=== PATIENT | female | born 1940 | race Caucasian/White ===

== ENCOUNTER 2023-07-26 14:47 | Emergency (ER) | payer MEDICARE, OTHER ==
[2023-07-26 15:17] LABS: BASOPHILS ABSOLUTE AUTO 0.03 K/uL (0.00-0.20); BASOPHILS PERCENT AUTO 0.5 % (0.0-1.0); EOSINOPHILS ABSOLUTE AUTO 0.09 K/uL (0.00-0.45); EOSINOPHILS PERCENT AUTO 1.6 % (0.0-6.0); HEMATOCRIT 33.6 % (37.0-47.0); HEMOGLOBIN 10.2 g/dL (12.0-16.0); IMMATURE GRAN ABSOLUTE AUTO 0.01 K/uL (0.00-0.05); IMMATURE GRAN PERCENT AUTO 0.2 % (0.0-0.4); LYMPHOCYTES ABSOLUTE AUTO 1.63 K/uL (1.00-4.80); LYMPHOCYTES PERCENT AUTO 29.2 % (24.0-44.0); MEAN CORPUSCULAR HEMOGLOBIN 26.1 pg (28.0-32.0); MEAN CORPUSCULAR HGB CONC 30.4 g/dL (32.0-36.0); MEAN CORPUSCULAR VOLUME 85.9 fL (83.0-99.0); MEAN PLATELET VOLUME 9.6 fL (9.4-12.3); MONOCYTES ABSOLUTE AUTO 0.48 K/uL (0.00-0.80); MONOCYTES PERCENT AUTO 8.6 % (0.0-8.0); NEUTROPHILS ABSOLUTE AUTO 3.34 K/uL (1.80-7.70); NEUTROPHILS PERCENT AUTO 59.9 % (41.0-71.0); PLATELET COUNT,PLT 200 K/uL (150-400); RED BLOOD CELL COUNT 3.91 M/uL (4.10-5.30); WHITE BLOOD CELL COUNT,WBC 5.58 K/uL (3.9-11.3)
[2023-07-26 15:53] LABS: CALCIUM 8.7 mg/dL (8.5-10.1); CARBON DIOXIDE,CO2 31.6 mmol/L (21.0-32.0); CREATININE 1.1 mg/dL (0.6-1.0); EST CRCL DRUG DOSING (CG) 36.91 mL/min; POTASSIUM,K 4.4 mmol/L (3.5-5.1)
[2023-07-26 16:03] LABS: APPEARANCE,URINE CLEAR; BILIRUBIN,URINE NEGATIVE (NEGATIVE); COLOR,URINE YELLOW; GLUCOSE,URINE NEGATIVE (NEGATIVE); KETONES,URINE NEGATIVE (NEGATIVE); LEUKOCYTE ESTERASE,URINE SMALL (NEGATIVE); NITRITE,URINE NEGATIVE (NEGATIVE); OCCULT BLOOD,URINE SMALL (NEGATIVE); PROTEIN,URINE NEGATIVE (NEGATIVE); UROBILINOGEN,URINE 0.2 EU/dL (<2.0)
[2023-07-26 16:21] LABS: EPITHELIAL CELLS,URINE MANY (NONE-FEW)
[2023-07-26 16:22] LABS: BACTERIA,URINE RARE (NEGATIVE)
[2023-07-27 09:08] VITALS: BP 100/51; PULSE 68
== END 2023-07-26 17:20 | disposition home or self-care (01) ==
LOC: MW.ED 14:47
DX: S00.93XA Contusion of unspecified part of head, initial encounter (principal); E78.00 Pure hypercholesterolemia, unspecified; K21.9 Gastro-esophageal reflux disease without esophagitis; M19.90 Unspecified osteoarthritis, unspecified site; Z79.82 Long term (current) use of aspirin; Z79.899 Other long term (current) drug therapy; W18.30XA Fall on same level, unspecified, initial encounter; Z75.8 Other problems related to medical facilities and other health care
CPT/HCPCS: 36415; 70450; 70450-26; 80048; 81001; 85025; 99282; 99284

== ENCOUNTER 2023-08-08 10:21 | Emergency (ER) | payer MEDICARE, OTHER ==
[2023-08-08] MEDS: Sodium Chloride 0.9% 10 ML Syringe FLUSH PRN (10:43)
[2023-08-08] MEDS: Sodium Chloride 0.9% 2.5 ML Syringe FLUSH PRN (10:44)
[2023-08-08 11:41] LABS: BASOPHILS ABSOLUTE AUTO 0.02 K/uL (0.00-0.20); BASOPHILS PERCENT AUTO 0.3 % (0.0-1.0); EOSINOPHILS ABSOLUTE AUTO 0.01 K/uL (0.00-0.45); EOSINOPHILS PERCENT AUTO 0.1 % (0.0-6.0); HEMATOCRIT 33.2 % (37.0-47.0); HEMOGLOBIN 9.8 g/dL (12.0-16.0); IMMATURE GRAN ABSOLUTE AUTO 0.02 K/uL (0.00-0.05); IMMATURE GRAN PERCENT AUTO 0.3 % (0.0-0.4); LYMPHOCYTES ABSOLUTE AUTO 0.75 K/uL (1.00-4.80); LYMPHOCYTES PERCENT AUTO 9.8 % (24.0-44.0); MEAN CORPUSCULAR HEMOGLOBIN 25.7 pg (28.0-32.0); MEAN CORPUSCULAR HGB CONC 29.5 g/dL (32.0-36.0); MEAN CORPUSCULAR VOLUME 87.1 fL (83.0-99.0); MEAN PLATELET VOLUME 9.9 fL (9.4-12.3); MONOCYTES ABSOLUTE AUTO 0.53 K/uL (0.00-0.80); MONOCYTES PERCENT AUTO 6.9 % (0.0-8.0); NEUTROPHILS ABSOLUTE AUTO 6.35 K/uL (1.80-7.70); NEUTROPHILS PERCENT AUTO 82.6 % (41.0-71.0); PLATELET COUNT,PLT 171 K/uL (150-400); RED BLOOD CELL COUNT 3.81 M/uL (4.10-5.30); WHITE BLOOD CELL COUNT,WBC 7.68 K/uL (3.9-11.3)
[2023-08-08 11:50] LABS: INR 1.06 (0.86-1.11)
[2023-08-08] MEDS: Iopamidol 755 MG/ML 500 ML Multipack Bottle IVPUSH STA (12:00)
[2023-08-08 12:10] LABS: A/G RATIO 0.6 (0.9-1.6); ALANINE AMINOTRANSFERASE,ALT 10 IU/L (14-63); ALBUMIN 2.3 g/dL (3.4-5.0); ALKALINE PHOSPHATASE 87 U/L (46-116); ASPARTATE AMNIOTRANSFERASE,AST 15 IU/L (15-37); BILIRUBIN TOTAL 0.6 mg/dL (0.2-1.0); BLOOD UREA NITROGEN,BUN 23 mg/dL (7.0-18.0); CALCIUM 8.6 mg/dL (8.5-10.1); CHLORIDE,CL 101 mmol/L (98-107); GLUCOSE RANDOM 100 mg/dL (74-106); LACTIC ACID 0.9 mmol/L (0.4-2.0); MAGNESIUM 2.2 mg/dL (1.8-2.4); POTASSIUM,K 3.8 mmol/L (3.5-5.1); PROTEIN TOTAL,TP 6.2 g/dL (6.4-8.2); SODIUM,NA 136 mmol/L (136-145)
[2023-08-08 12:12] LABS: ESTIMATED GFR 56 mL/min (>60)
[2023-08-08] MEDS: Factor IX Complex Human 1,000 UNIT VIAL IV ONE ×2 (12:40→12:41)
[2023-08-08] MEDS: cefTRIAXone 1 GM in Sodium Chloride 0.9% 50 ML IV ONE (12:59)
[2023-08-08] MEDS: Azithromycin 500 MG in Sodium Chloride 0.9% 250 ML IV ONE (12:59)
[2023-08-08 13:02] VITALS: BP 104/63; PULSE 68
== END 2023-08-08 13:50 ==
LOC: MW.ED 10:21
DX: J18.9 Pneumonia, unspecified organism (principal); I71.60 Thoracoabdominal aortic aneurysm, without rupture, unspecified; R55 Syncope and collapse; K43.9 Ventral hernia without obstruction or gangrene; K21.9 Gastro-esophageal reflux disease without esophagitis; E78.00 Pure hypercholesterolemia, unspecified; Z79.899 Other long term (current) drug therapy; Z79.82 Long term (current) use of aspirin; Z75.8 Other problems related to medical facilities and other health care; W19.XXXA Unspecified fall, initial encounter
CPT/HCPCS: 36415; 70450; 71275; 72125; 74177; 80053; 83605; 83735; 83880; 84484; 85025; 85610; 86850; 86900; 86901; 93005; 96365; 96368; 96375; 99285; J0456; J0696; J3490; J7050; J7168; Q9967; 93010

== ENCOUNTER 2024-05-17 10:34 | Inpatient (IN) | payer MEDICARE, OTHER ==
[2024-05-17 12:03] LABS: BASOPHILS ABSOLUTE AUTO 0.01 K/uL (0.00-0.20); BASOPHILS PERCENT AUTO 0.1 % (0.0-1.0); EOSINOPHILS ABSOLUTE AUTO 0.04 K/uL (0.00-0.45); EOSINOPHILS PERCENT AUTO 0.5 % (0.0-6.0); HEMATOCRIT 35.1 % (37.0-47.0); IMMATURE GRAN ABSOLUTE AUTO 0.02 K/uL (0.00-0.05); IMMATURE GRAN PERCENT AUTO 0.3 % (0.0-0.4); LYMPHOCYTES ABSOLUTE AUTO 1.01 K/uL (1.00-4.80); LYMPHOCYTES PERCENT AUTO 13.8 % (24.0-44.0); MEAN CORPUSCULAR HEMOGLOBIN 26.1 pg (28.0-32.0); MEAN CORPUSCULAR HGB CONC 31.3 g/dL (32.0-36.0); MEAN CORPUSCULAR VOLUME 83.4 fL (83.0-99.0); MONOCYTES ABSOLUTE AUTO 0.33 K/uL (0.00-0.80); MONOCYTES PERCENT AUTO 4.5 % (0.0-8.0); NEUTROPHILS ABSOLUTE AUTO 5.92 K/uL (1.80-7.70); NEUTROPHILS PERCENT AUTO 80.8 % (41.0-71.0); PLATELET COUNT,PLT 294 K/uL (150-400); RED BLOOD CELL COUNT 4.21 M/uL (4.10-5.30); WHITE BLOOD CELL COUNT,WBC 7.33 K/uL (3.9-11.3)
[2024-05-17 12:34] LABS: A/G RATIO 0.5 (0.9-1.6); ALANINE AMINOTRANSFERASE,ALT 15 IU/L (14-63); ALBUMIN 2.5 g/dL (3.4-5.0); ALKALINE PHOSPHATASE 68 U/L (46-116); ASPARTATE AMNIOTRANSFERASE,AST 24 IU/L (15-37); BILIRUBIN TOTAL 0.4 mg/dL (0.2-1.0); BLOOD UREA NITROGEN,BUN 19 mg/dL (7.0-18.0); CALCIUM 9.5 mg/dL (8.5-10.1); CARBON DIOXIDE,CO2 30.5 mmol/L (21.0-32.0); CHLORIDE,CL 105 mmol/L (98-107); CREATININE 0.8 mg/dL (0.6-1.0); GLUCOSE RANDOM 92 mg/dL (74-106); POTASSIUM,K 4.2 mmol/L (3.5-5.1); PROTEIN TOTAL,TP 7.2 g/dL (6.4-8.2); SODIUM,NA 146 mmol/L (136-145)
[2024-05-17 12:36] LABS: LACTIC ACID 0.9 mmol/L (0.4-2.0)
[2024-05-17 12:54] LABS: ESTIMATED GFR 73 mL/min (>60)
[2024-05-17] MEDS ORDERED: Sodium Chloride 0.9% 2.5 ML Syringe FLUSH PRN (13:29)
[2024-05-17] MEDS ORDERED: Sodium Chloride 0.9% 10 ML Syringe FLUSH PRN (13:29)
[2024-05-17] MEDS: Iopamidol 755 MG/ML 500 ML Multipack Bottle IVPUSH STA (16:45)
[2024-05-17] MEDS ORDERED: Docusate Sodium 100 MG Cap PO PRN (17:56)
[2024-05-17] MEDS ORDERED: Acetaminophen 325 MG Tab PO PRN (17:56)
[2024-05-17] MEDS ORDERED: Polyethylene Glycol 3350 Powder 17 GM Packet PO PRN (17:56)
[2024-05-17] MEDS: cefTRIAXone 1 GM in Sodium Chloride 0.9% 50 ML IV ONE (18:06)
[2024-05-18] MEDS: Sodium Chloride 0.9% 1,000 ML IV SCH (00:07)
[2024-05-18 06:01] LABS: HEMATOCRIT 32.4 % (37.0-47.0); HEMOGLOBIN 9.8 g/dL (12.0-16.0); MEAN CORPUSCULAR HEMOGLOBIN 25.3 pg (28.0-32.0); MEAN CORPUSCULAR HGB CONC 30.2 g/dL (32.0-36.0); MEAN CORPUSCULAR VOLUME 83.7 fL (83.0-99.0); MEAN PLATELET VOLUME 9.4 fL (9.4-12.3); PLATELET COUNT,PLT 252 K/uL (150-400); RED BLOOD CELL COUNT 3.87 M/uL (4.10-5.30); WHITE BLOOD CELL COUNT,WBC 6.75 K/uL (3.9-11.3)
[2024-05-18 06:18] LABS: INR 1.16 (0.86-1.11)
[2024-05-18 06:37] LABS: A/G RATIO 0.5 (0.9-1.6); ALBUMIN 2.1 g/dL (3.4-5.0); ALKALINE PHOSPHATASE 64 U/L (46-116); ASPARTATE AMNIOTRANSFERASE,AST 11 IU/L (15-37); BILIRUBIN TOTAL 0.5 mg/dL (0.2-1.0); BLOOD UREA NITROGEN,BUN 13 mg/dL (7.0-18.0); CALCIUM 8.7 mg/dL (8.5-10.1); CARBON DIOXIDE,CO2 25.4 mmol/L (21.0-32.0); CHLORIDE,CL 107 mmol/L (98-107); CREATININE 0.6 mg/dL (0.6-1.0); ESTIMATED GFR 89 mL/min (>60); GLUCOSE RANDOM 80 mg/dL (74-106); PHOSPHORUS 3.1 mg/dL (2.6-4.7); POTASSIUM,K 3.5 mmol/L (3.5-5.1); PROTEIN TOTAL,TP 6.2 g/dL (6.4-8.2); SODIUM,NA 143 mmol/L (136-145)
[2024-05-18 06:57] LABS: ALANINE AMINOTRANSFERASE,ALT 6 IU/L (14-63)
[2024-05-18] MEDS ORDERED: Bupivacaine 0.5%/EPINEPHrine 1:200,000 30 ML SDV ONE (11:01)
[2024-05-18] MEDS ORDERED: Phenylephrine HCl In 0.9% NaCl 1 MG/10 ML Syringe IVPUSH PRN (11:28)
[2024-05-18] MEDS ORDERED: Albuterol 0.083% 2.5 MG/3 ML Neb Soln NEB PRN (11:28)
[2024-05-18] MEDS ORDERED: Metoclopramide 10 MG/2 ML SDV IVPUSH PRN (11:28)
[2024-05-18] MEDS ORDERED: Ondansetron 4 MG/2 ML SDV IVPUSH PRN (11:28)
[2024-05-18] MEDS ORDERED: HYDROmorphone 1 MG/ML Syringe IVPUSH PRN (11:28)
[2024-05-18] MEDS ORDERED: Morphine 2 MG/ML SYRINGE IVPUSH PRN (11:28)
[2024-05-18] MEDS ORDERED: fentaNYL 50 MCG/ML SDV IVPUSH PRN (11:28)
[2024-05-18] MEDS ORDERED: Naloxone 0.4 MG/ML SDV IVPUSH PRN ×2 (11:28→18:26)
[2024-05-18] MEDS ORDERED: fentaNYL 100 MCG/2 ML SDV ONE (12:01)
[2024-05-18] MEDS ORDERED: Propofol 200 MG/20 ML SDV ONE (12:01)
[2024-05-18] MEDS ORDERED: Lidocaine 2% 5 ML SDV ONE (12:02)
[2024-05-18] MEDS: cefTRIAXone 1 GM in Sodium Chloride 0.9% 50 ML IV SCH (18:30)
[2024-05-18] MEDS: Morphine 2 MG/ML SYRINGE IVPUSH PRN (18:38)
[2024-05-19 06:06] LABS: BASOPHILS ABSOLUTE AUTO 0.03 K/uL (0.00-0.20); BASOPHILS PERCENT AUTO 0.3 % (0.0-1.0); EOSINOPHILS ABSOLUTE AUTO 0.01 K/uL (0.00-0.45); EOSINOPHILS PERCENT AUTO 0.1 % (0.0-6.0); HEMATOCRIT 33.2 % (37.0-47.0); HEMOGLOBIN 10.3 g/dL (12.0-16.0); IMMATURE GRAN ABSOLUTE AUTO 0.03 K/uL (0.00-0.05); IMMATURE GRAN PERCENT AUTO 0.3 % (0.0-0.4); LYMPHOCYTES PERCENT AUTO 8.7 % (24.0-44.0); MEAN CORPUSCULAR HEMOGLOBIN 25.8 pg (28.0-32.0); MEAN PLATELET VOLUME 9.7 fL (9.4-12.3); MONOCYTES ABSOLUTE AUTO 0.35 K/uL (0.00-0.80); MONOCYTES PERCENT AUTO 3.4 % (0.0-8.0); NEUTROPHILS ABSOLUTE AUTO 8.97 K/uL (1.80-7.70); NEUTROPHILS PERCENT AUTO 87.2 % (41.0-71.0); PLATELET COUNT,PLT 265 K/uL (150-400); WHITE BLOOD CELL COUNT,WBC 10.29 K/uL (3.9-11.3)
[2024-05-19 06:36] LABS: A/G RATIO 0.5 (0.9-1.6); ALANINE AMINOTRANSFERASE,ALT 8 IU/L (14-63); ALKALINE PHOSPHATASE 65 U/L (46-116); ASPARTATE AMNIOTRANSFERASE,AST 12 IU/L (15-37); BILIRUBIN TOTAL 0.5 mg/dL (0.2-1.0); BLOOD UREA NITROGEN,BUN 11 mg/dL (7.0-18.0); CALCIUM 8.6 mg/dL (8.5-10.1); CARBON DIOXIDE,CO2 23.7 mmol/L (21.0-32.0); CHLORIDE,CL 106 mmol/L (98-107); CREATININE 0.5 mg/dL (0.6-1.0); GLUCOSE RANDOM 96 mg/dL (74-106); MAGNESIUM 1.8 mg/dL (1.8-2.4); POTASSIUM,K 3.4 mmol/L (3.5-5.1); PROTEIN TOTAL,TP 6.4 g/dL (6.4-8.2); SODIUM,NA 143 mmol/L (136-145)
[2024-05-19 06:39] LABS: ESTIMATED GFR 93 mL/min (>60)
[2024-05-19] MEDS ORDERED: Potassium Chloride 10% 20 MEQ/15 ML Soln 15 ML UD Cup PO ONE (08:50)
[2024-05-19] MEDS: Potassium Chloride 20 MEQ Tab.ER PO ONE (09:27)
[2024-05-19 12:25] VITALS: BP 107/55; PULSE 73
== END 2024-05-19 14:37 | DRG 594 ==
LOC: MW.ED 10:34 → MW.MS 17:47
PROVIDERS: ADMIT Internal Medicine; ATTEND Internal Medicine
PROC: 0HB8XZZ Excision of Buttock Skin, External Approach (ICD-10-PCS; principal; 2024-05-18 13:00)
DX: L89.319 Pressure ulcer of right buttock, unspecified stage (principal); Z66 Do not resuscitate; H54.7 Unspecified visual loss; L89.159 Pressure ulcer of sacral region, unspecified stage; K21.9 Gastro-esophageal reflux disease without esophagitis; E78.00 Pure hypercholesterolemia, unspecified; K59.00 Constipation, unspecified; G30.9 Alzheimer's disease, unspecified; F02.80 Dementia in other diseases classified elsewhere, unspecified severity, without behavioral disturbance, psychotic disturbance, mood disturbance, and anxiety; Z96.641 Presence of right artificial hip joint; M19.90 Unspecified osteoarthritis, unspecified site; Z74.01 Bed confinement status; Z98.49 Cataract extraction status, unspecified eye; Z90.89 Acquired absence of other organs; Z79.1 Long term (current) use of non-steroidal anti-inflammatories (NSAID); Z79.02 Long term (current) use of antithrombotics/antiplatelets; Z90.49 Acquired absence of other specified parts of digestive tract; Z98.890 Other specified postprocedural states; Z90.710 Acquired absence of both cervix and uterus; Z79.82 Long term (current) use of aspirin; Z99.3 Dependence on wheelchair; Z79.899 Other long term (current) drug therapy
CPT/HCPCS: 36415; 74177; 80053; 83605; 85025; 87040 ×2; 87070; 87075; 87077 ×2; 87186 ×2; 87205; 99284; Q9967; 00400; 83735; 84100; 85027; 85610; 88304; 99100; 99222; 99232; 99239; A9270-GY; J0696; J2003; J2270; J2704; J3010; J3490; J7030

== ENCOUNTER 2024-11-30 11:34 | Emergency (ER) | payer MEDICARE, OTHER ==
[2024-11-30 11:55] VITALS: BP 93/55; PULSE 70
== END 2024-11-30 13:05 | disposition home or self-care (01) ==
LOC: MW.ED 11:34
DX: M25.551 Pain in right hip (principal); M25.552 Pain in left hip; K59.00 Constipation, unspecified; E78.00 Pure hypercholesterolemia, unspecified; K21.9 Gastro-esophageal reflux disease without esophagitis; M19.90 Unspecified osteoarthritis, unspecified site; Z90.49 Acquired absence of other specified parts of digestive tract; Z90.710 Acquired absence of both cervix and uterus; Z79.82 Long term (current) use of aspirin; Z79.899 Other long term (current) drug therapy; Z75.3 Unavailability and inaccessibility of health-care facilities
CPT/HCPCS: 70450; 70450-26; 72131; 72131-26; 72192; 72192-26; 99283